=== PATIENT | female | born 1955 | race Hispanic/Latino ===

== ENCOUNTER 2025-05-25 14:26 | Emergency (ER) | payer OTHER, MEDICARE ==
[~2025-05-25] VITALS: Ht 157.5 cm; Wt 120.2 kg
--- NOTE | 2025-05-25 15:04 | ERN ---
ED Note History of Present Illness Stated Complaint: INSECT BITE Chief Complaint: Insect Bite Time Seen by MD: 14:31 Time Seen by Midlevel: 14:35 Dictation: 69-year-old female coming in with a wound to the left upper arm. Patient states has been going on for two weeks. Patient states it started off lytes and insect bite itchy, throughout the progression of the days a opening was noted and there is a drainage coming from the area. Allergies: Coded Allergies: shellfish derived (Unverified Allergy, Unknown, 05/25/25) Past Medical History Past Medical History: Unknown Surgical History: Cholecystectomy Surgical History Other: CYST REMOVAL, GASTRIC BYPASS Review of System Dictation Constitutional: Negative for fever,chills, and weight loss Eyes: Negative for injury, pain,redness, and discharge ENT: Negative for injury,pain or swelling Cardiovascular: Negative for chest pain, palpitations, and edema Respiratory: Negative for shortness of breath, cough, and wheezing, Abdomen/GI: Negative for abdominal pain, nausea, vomiting, diarrhea, and constipation Back: Negative for injury and pain : Negative for injury, bleeding and discharge MS/Extremity: Negative for injury and deformity Skin: Negative for rash, and discoloration, Neuro: Negative for headache, weakness, numbness, tingling, and seizure Psych: Negative for suicide ideation, homicidal ideation, and hallucinations Review of Systems: was completed Initial Vital Sign VS Vital Signs Date Time Temp Pulse Resp B/P (MAP) Pulse Ox O2 Delivery O2 Flow Rate FiO2 05/25/25 14:28 98.1 93 19 199/98 95 Room Air 0 05/25/25 14:28 21 Physical Exam Dictation General: awake, alert, NAD Head/Face: Normocephalic, atraumatic Eyes: PERRL, EOMI, vision at baseline ENT: oral cavity clear, TMs clear, no signs of infection Neck: Trachea midline, supple, no nuchal rigidity Cardiovascular: RRR, normal S1/S2, No MRGs, no JVD Respiratory: CTAB, no respiratory distress, No rales or wheezes Abdomen: Soft, non-tender, non-distended, normal bowel sounds, no guarding or rebound. Skin: Warm, dry, normal turgor, no rash. Left upper arm circular open lesion with a mild serosanguineous drainage noted on dressing, mildly erythematous with mild induration. No fluctuance or active purulent drainage. MS/Extremity: Pulses equal, no cyanosis, neurovascular intact, FROM Neuro: COAx4, GCS 15, strength 5/5, CN 2-12 intact, normal cerebellar exam, normal gait, Psych: Normal behavior, mood, and affect normal ED Course ED Course Vital Signs Date Time Temp Pulse Resp B/P (MAP) Pulse Ox O2 Delivery O2 Flow Rate FiO2 05/25/25 14:28 98.1 87 20 199/98 97 Room Air* 0 21 05/25/25 14:28 98.1 93 19 199/98 95 Room Air 0 Medical Decision Making MDM MDM: 69-year-old female coming in with a wound to the left upper arm. Patient states has been going on for two weeks. Patient states it started off lytes and insect bite itchy, throughout the progression of the days a opening was noted and there is a drainage coming from the area. There is serosanguineous drainage from coming from area. Minimal erythema. And minimal induration. Patient states she has been taking mixed you can amoxicillin for five days. No need to drain the area since already draining, we will switch antibiotics inpatient can apply warm compresses to help with drainage. Educated follow up with PCP in 1-2 days. And to return to the hospital as needed. Differential diagnosis: Cellulitis, insect bite, abscess Rationale: Tests considered and ordered secondary to shared decision making in clude: Previous outside records reviewed: Old ER visits. Risk of complication and/or morbidity or mortality of patient management: None Medications-Per medication reconciliation Need for hospitalization: Patient does not meet criteria for hospitalization. Need for emergency major/minor surgery: No There are no social concerns with this patient. Prescription drug management Prescriptions will include symptomatic care Patient's prior external medical records from other ER visits were reviewed by me as indicated. Prior testing and results from previous visits were reviewed. Prior tests were taken into account with medical decision making and resource utilization, independent historian/historians were used to obtain complete medical history. I independently interpreted the test that were performed, results were reviewed by me and considered findings on radiology if ordered. Medical management and examination interpretation discussions were had by me with other qualified healthcare professionals as indicated for the patient's care. DX & DISP Disposition: Discharge Departure Impression: Primary Impression: Abscess Condition: Stable Scripts Sulfamethoxazole/Trimethoprim (Bactrim Ds Tablet) 800 Mg-160 Mg Tablet 1 TAB PO BID for 7 Days, #14 TAB 0 Refills Prov: ELVIE ANGELES NP 05/25/25 Additional Instructions: Educated apply warm compresses to help drain the abscess. Follow up with your PCP in 1-2 days. Referrals: SELF,REFERRAL (PCP) I have reviewed the case, and I agree with, Diagnosis and Plan ELVIE ANGELES NP May 25, 2025 15:04
[2025-05-25] MEDS ORDERED: SULF1TAB42 PO (15:15)
[2025-05-25 15:31] VITALS: BP 165/89; PULSE 88; RESP 18; TEMP 98.1; O2SAT 97
== END 2025-05-25 15:43 | disposition home or self-care (01) ==
LOC: EDH 14:26
DX: L02.424 Furuncle of left upper limb (principal); Z90.49 Acquired absence of other specified parts of digestive tract; Z91.013 Allergy to seafood; Z98.84 Bariatric surgery status
CPT/HCPCS: 99282

== ENCOUNTER 2025-06-27 15:31 | Emergency (ER) | payer OTHER, MEDICARE ==
[~2025-06-27] VITALS: Ht 157.5 cm; Wt 117.9 kg
[~2025-06-27 15:31] MED LIST: SULF1TAB42 PO
[2025-06-27 16:21] LABS: IMMATURE GRANULOCYTE ABSOLUTE 0.03 K/uL (0-1); NUCLEATED RED BLOOD CELLS 0.0 % (0.0-0.19); PLATELET COUNT (AUTO) 238 K/uL (130-400); RED BLOOD CELL COUNT(AUTO) 4.66 MIL/uL (4.00-5.50); RED CELL DISTRIBUTION WIDTH 13.9 % (11.0-15.5); WHITE BLOOD COUNT (AUTO) 5.0 K/uL (4.8-10.8)
[2025-06-27 16:37] LABS: CREATININE 0.8 mg/dL (0.5-1.0); GLOMERULAR FILTR. RATE CALC 78.0 mL/min (>90); GLUCOSE,RANDOM 101.0 mg/dL (70-105); SODIUM SERUM 133.0 mmol/L (136-145); UREA NITROGEN, BLOOD 17.0 mg/dL (7-18)
[2025-06-27 16:41] LABS: CREATINE KINASE, TOTAL 48.0 U/L (21-232)
[2025-06-27 16:46] LABS: INR 0.94 (0.85-1.15)
--- NOTE | 2025-06-27 16:56 | HMCIMG ---
EXAM: CR Chest, 1 View. CLINICAL HISTORY: cp COMPARISON: None provided. FINDINGS: LUNGS: There is no mass, infiltrate, or acute pulmonary abnormality. PLEURAL SPACES: No evidence of pleural effusion or pneumothorax. MEDIASTINUM: The cardiomediastinal silhouette is within normal limits. BONES: No acute osseous abnormality. IMPRESSION: No acute cardiopulmonary pathology is evident. /[place]
--- NOTE | 2025-06-27 17:30 | EKG ---
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
--- NOTE | 2025-06-27 18:47 | ERN ---
General Chief Complaint: Chest Pain Stated Complaint: CHEST PAIN Time Seen by MD: 15:34 Time Seen by Midlevel: 15:34 Source: patient History of Present Illness Initial Comments 70-year-old female presents to the emergency department for evaluation of chest pressure started just prior to arrival. No other symptoms reported. Patient denies having a history of high blood pressure Allergies: Coded Allergies: shellfish derived (Unverified Allergy, Unknown, 05/25/25) Home Meds Active Scripts Sulfamethoxazole/Trimethoprim (Bactrim Ds Tablet) 800 Mg-160 Mg Tablet, 1 TAB PO BID for 7 Days, #14 TAB 0 Refills Prov:ELVIE ANGELES YOUSIF 05/25/25 Past Medical History Past Medical History: No Pertinent History, Unknown Past Surgical History: Cholecystectomy Surgical History Other: CYST REMOVAL, GASTRIC BYPASS ROS Dictation CONSTITUTIONAL: Negative except for HPI HEAD/FACE: Negative except for HPI EENT: Negative except for HPI RESPIRATORY: Negative except for HPI GASTROINTESTINAL/ABDOMINAL: Negative except for HPI GENITOURINARY: Negative except for HPI MUSCULOSKELETAL: Negative except for HPI INTEGUMENTARY: Negative except for HPI NEUROLOGICAL/PSYCH: Negative except for HPI HEMATOLOGIC/LYMPHATIC: Negative except for HPI All Systems Negative, Except as noted above. 13 point review of systems assessed and all negative except for above. Physical Exam Physical Exam Dictation Vital Signs reviewed General Appearance: Alert, oriented x 3, no acute distress, well developed, nourished. Head and Face: non-traumatic. Eyes: PERRL, pink conjunctivas, eyelid no trauma, anterior chamber with arcus senilis. Ears: Pinnas intact and no signs of trauma or erythema ear canals clear and no discharge TM no erythema Nose: No discharge, no bleeding. Oropharynx: Mouth normal, tongue pink, pharynx clear,no erythema, tonsils no exudates, no abscesses noted, mucous membrane moist Neck: Supple, non-tender, no thyromegaly, no masses, no JVD, no bruits Breast:Deferred Chest:No tenderness, no crepitus, no paradoxical movement, no retractions Lungs:Clear, well-ventilated, symmetric, no rales, no wheezing, no rhonchi, no stridor, good breath sounds bilaterally Heart: Regular rate, regular rhythm, no murmur, no gallops Vascular: no peripheral edema, Abdomen: Soft, positive bowel sounds, nondistended, no guarding, nontender, no rebound, no masses no hepatomegaly, no splenomegaly, no Ortiz's sign, no hernias. Rectal: Deferred Genital: Deferred Neurological: Normal speech, motor function intact, sensory function intact Musculoskeletal: Neck nontender, full range of motion, back nontender, full range of motion, Extremities: nontender, full range of motion Skin: Color pink, dry, no turgor, no rash, no lacerations, no abrasions, no contusions. Lymphatic: Deferred Results Laboratory and Microbiology Lab and Micro Result Laboratory Tests Test 06/27/25 16:07 06/27/25 18:06 White Blood Count 5.0 K/uL (4.8-10.8) Red Blood Count 4.66 MIL/uL (4.00-5.50) Hemoglobin 13.2 g/dL (12.0-16.0) Hematocrit 40.2 % (36-48) Mean Corpuscular Volume 86.3 fL (79-99) Mean Corpuscular Hemoglobin 28.3 pg (27.0-33.0) Mean Corpuscular Hemoglobin Concent 32.8 g/dL (32.0-36.0) Red Cell Distribution Width 13.9 % (11.0-15.5) Platelet Count 238 K/uL (130-400) Mean Platelet Volume 11.1 fL (7.5-10.5) H Immature Granulocyte % (Auto) 0.6 % (0-1) Neutrophils (%) (Auto) 47.1 % (40.0-77.0) Lymphocytes (%) (Auto) 33.0 % (21.0-51.0) Monocytes (%) (Auto) 19.1 % (3.0-13.0) H Eosinophils (%) (Auto) 0.2 % (0.0-8.0) Basophils (%) (Auto) 0.0 % (0.0-5.0) Neutrophils # (Auto) 2.3 K/uL (1.8-7.7) Lymphocytes # (Auto) 1.6 K/uL (1.0-4.8) Monocytes # (Auto) 1.0 K/uL (0.1-1.0) Eosinophils # (Auto) 0.01 K/uL (0.00-0.70) Basophils # (Auto) 0.00 K/uL (0.00-0.20) Absolute Immature Granulocyte (auto 0.03 K/uL (0-1) Nucleated Red Blood Cells 0.0 % (0.0-0.19) White Cell Morphology Comment See comments Prothrombin Time 10.0 SEC (9.6-11.6) Prothromb Time International Ratio 0.94 (0.85-1.15) Activated Partial Thromboplast Time 25.4 SEC (26.3-35.5) L Sodium Level 133 mmol/L (136-145) L Potassium Level 4.1 mmol/L (3.5-5.1) Chloride Level 97 mmol/L (101-111) L Carbon Dioxide Level 26 mmol/L (21-32) Blood Urea Nitrogen 17 mg/dL (7-18) Creatinine 0.8 mg/dL (0.5-1.0) Glomerular Filtration Rate Calc 78 mL/min (>90) Random Glucose 101 mg/dL (70-105) Total Calcium 9.3 mg/dL (8.5-10.1) Magnesium Level 2.00 mg/dL (1.80-2.40) Total Creatine Kinase 48 U/L (21-232) Troponin I High Sensitivity < 4 ng/L (4-50) L < 4 ng/L (4-50) L B-Type Natriuretic Peptide 22 pg/mL (0-100) Lipase 33 U/L (16-77) Labs Reviewed?: Yes MDM MDM: Differential diagnosis: Acute coronary syndrome, pneumonia, dehydration There are no social concerns with this patient. Prescription drug management Prescriptions will include: None Medical management and examination interpretation discussions were had by me with other qualified healthcare professionals as indicated for the patient's care. ED Course Orders Procedure Category Date Status Time 12 Lead Ekg Tracing- EKG 06/27/25 Complete Technical 15:52 Cbc With Differential LAB 06/27/25 Complete 15:52 Basic Metabolic Panel LAB 06/27/25 Complete 15:52 B-Type Natriuretic LAB 06/27/25 Complete Peptide 15:52 Creatine Kinase, Total LAB 06/27/25 Complete 15:52 Magnesium LAB 06/27/25 Complete 15:52 Troponin I High LAB 06/27/25 Complete Sensitivity 15:52 Pt And Ptt LAB 06/27/25 Complete 15:52 Chest 1vw RAD 06/27/25 Resulted 15:52 Lipase LAB 06/27/25 Complete 15:52 Troponin I High LAB 06/27/25 Complete Sensitivity 17:53 Clonidine Hcl 0.1 Mg PHA 06/27/25 Complete Tablet (Catapres 0. 18:30 Current Medications Medications (Trade) Dose Ordered Sig/Gallo Route PRN Reason Start Time Stop Time Status Last Admin Dose Admin Clonidine HCl (CATApres 0.1 mg TAB) 0.1 mg ONCE ONCE PO 06/27/25 18:30 06/27/25 18:31 DC 06/27/25 18:11 Vital Signs Date Time Temp Pulse Resp B/P (MAP) Pulse Ox O2 Delivery O2 Flow Rate FiO2 06/27/25 18:11 94 194/90 06/27/25 18:01 98.8 94 18 192/90 97 Room Air* 0 21 06/27/25 15:34 98.1 91 20 160/97 99 Room Air 0 HEART Score Response (Comments) Value History: Low suspicion (0) 0 EKG: Normal 0 Age: > 65yrs (+2) 2 Risk Factors: 1-2 risk factors (+1) 1 Initial Troponin: Normal limit (0) 0 HEART Score Risk: Low Risk for MACE (1-3) Total 3 DX & DISP Disposition: Discharge Departure Impression: Primary Impression: Non-cardiac chest pain Additional Impression: Elevated blood pressure reading Condition: Stable Additional Instructions: You were evaluated today for chest pain. Your evaluation included an EKG, chest x-ray, and blood work, including cardiac enzyme testing (troponins). All results were normal. There were no signs of a heart attack or other life- threatening conditions at this time. Your chest pain does not appear to be caused by your heart. Many other things can cause chest discomfort Follow up with your primary care provider within the next 3-5 days for re- evaluation. You may also choose to follow up with a aviation metalsmith if symptoms persist or if you have a history heart disease. Rest and avoid heavy physical exertion until cleared by your doctor. Although your evaluation today was normal, some heart or lung conditions can develop later. If you experience new or worsening pain, please return to the ER for re-evaluation per Referrals: SELF,REFERRAL (PCP) Time of Disposition: 19:02 I have reviewed the case, and I agree with, Diagnosis and Plan I performed the substantive portion of the visit. I have reviewed and personally made and approve the management plan that is documented in the note by myself or the ELAINE. I acknowledge for responsibility for the patient's management plan. SUHA MURPHY PAC Jun 27, 2025 18:47
[2025-06-27 19:27] VITALS: BP 138/81; PULSE 81; RESP 18; TEMP 98.2; O2SAT 98
== END 2025-06-27 19:28 | disposition home or self-care (01) ==
LOC: EDH 15:31
DX: R07.89 Other chest pain (principal); R03.0 Elevated blood-pressure reading, without diagnosis of hypertension; Z91.013 Allergy to seafood; Z98.84 Bariatric surgery status; Z90.49 Acquired absence of other specified parts of digestive tract
CPT/HCPCS: 36415; 71045; 80048; 82550; 83690; 83735; 83880; 84484; 85025; 85610; 85730; 93005; 99283

== ENCOUNTER → 2025-07-14 | Outpatient (CLI) | payer OTHER, MEDICARE ==
[2025-07-14 09:40] LABS: IMMATURE GRANULOCYTE ABSOLUTE 0.07 K/uL (0-1); NUCLEATED RED BLOOD CELLS 0.0 % (0.0-0.19); PLATELET COUNT (AUTO) 205 K/uL (130-400); RED BLOOD CELL COUNT(AUTO) 4.54 MIL/uL (4.00-5.50); RED CELL DISTRIBUTION WIDTH 13.8 % (11.0-15.5); WHITE BLOOD COUNT (AUTO) 5.1 K/uL (4.8-10.8)
[2025-07-14 10:00] LABS: % IRON SATURATION 13.3 % (22-44); IRON, SERUM 59.0 mcg/dL (50-170)
[2025-07-14 10:34] LABS: ASPARTATE AMINOTRANSFERASE 22 U/L (10-37); CREATININE 0.7 mg/dL (0.5-1.0); GLOMERULAR FILTR. RATE CALC 92 mL/min (>90); GLUCOSE,RANDOM 90 mg/dL (70-105); LDL DIRECT 76 mg/dL (0-99); SODIUM SERUM 140 mmol/L (136-145); TOTAL PROTEIN, SERUM 7.5 g/dL (6.0-8.3); UREA NITROGEN, BLOOD 12 mg/dL (7-18)
== END | disposition home or self-care (01) ==
LOC: RAH 08:39
PROVIDERS: ATTEND Internal Medicine
DX: Z12.31 Encounter for screening mammogram for malignant neoplasm of breast (principal); Z13.1 Encounter for screening for diabetes mellitus; Z13.220 Encounter for screening for lipoid disorders; Z13.29 Encounter for screening for other suspected endocrine disorder; E55.9 Vitamin D deficiency, unspecified; Z98.84 Bariatric surgery status; Z79.899 Other long term (current) drug therapy
CPT/HCPCS: 36415; 77067; 80053; 80061; 82306; 82607; 82746; 83036; 83540; 83550; 84443; 85025